=== PATIENT | male | born 1960 | race Caucasian/White ===

== ENCOUNTER 2021-01-16 20:57 | Emergency (ER) | payer BC ==
[~2021-01-16] VITALS: Ht 185.4 cm; Wt 72.7 kg
[~2021-01-16 20:57] MED LIST: ACET325T9 PO; BENZ200C47 PO; ONDA4TAB7 PO; OXYC1TAB15 PO; SILD100T PO; SIMV20TA18 PO
[2021-01-16 22:10] VITALS: BP 143/82
[2021-01-16] MEDS ORDERED: LIDOCAINE/EPI/TETRACAINE TOPICAL GEL 3 ML. TP ONE (22:30)
[2021-01-16] MEDS ORDERED: DIPH,PERTUSS(ACELL),TET VAC/PF 0.5 ML SYRINGE. VAX IM ONE (22:30)
[2021-01-16] MEDS ORDERED: AMOXICILLIN/K CLAV 875/125MG TABLET. PO ONE (22:30)
[2021-01-16] MEDS ORDERED: HYDROcodone/APAP 5/325MG 1 TAB TABLET PO ONE (22:30)
[2021-01-16] MEDS ORDERED: AMOX1TAB61 PO (22:40)
--- NOTE | 2021-01-16 22:41 | PHYS DOC ---
Past Medical History Past Medical History: High Cholesterol, Hypertension, Pneumonia Past Surgical History: Cholecystectomy, Other Additional Past Surgical Histo: hernia Smoking Status: Current Every Day Smoker Alcohol Use: Occasionally Drug Use: None General Adult EDM: Chief Complaint: ANIMAL BITE HPI: HPI: Patient is a 60 year old male with a history of hypertension, high cholesterol, current smoker, who presents to the ED today with dog bites. Patient states he got bit by his friend's pit bull prior to coming to the ED. He has bites to the left medial leg and right upper extremity. Patient states the dog is up-to-date with its shots. Review of Systems: Review of Systems: Constitutional: Denies fever or chills. [] Musculoskeletal: Denies back pain or joint pain. [] Integument: Dog bites to the left medial leg and right upper extremity Neurologic: Denies headache, focal weakness or sensory changes. [] Psychiatric: Denies depression or anxiety. [] Heart Score: C/O Chest Pain: N/A Risk Factors: Risk Factors: DM, Current or recent (<one month) smoker, HTN, HLP, family history of CAD, obesity. Risk Scores: Score 0 - 3: 2.5% MACE over next 6 weeks - Discharge Home Score 4 - 6: 20.3% MACE over next 6 weeks - Admit for Clinical Observation Score 7 - 10: 72.7% MACE over next 6 weeks - Early Invasive Strategies Current Medications: Current Medications Medications (Trade) Dose Ordered Sig/Jeny Start Time Stop Time Status Last Admin Dose Admin Acetaminophen/ Hydrocodone Bitart (Lortab 5/325) 2 tab 1X ONCE 01/16/21 22:30 01/16/21 22:31 Amoxicillin/ Clavulanate Potassium (Augmentin 875/ 125mg) 1 tab 1X ONCE 01/16/21 22:30 01/16/21 22:31 UNV Diphtheria/ Tetanus/Acell Pertussis (ADACEL TDap SYRINGE) 0.5 ml ONCE ONCE 01/16/21 22:30 01/16/21 22:31 Tetracaine/ Epinephrine/ Lidocaine (Let (Nbab-Dvapiiu-Pcnpc) Gel) 12 ml 1X ONCE 01/16/21 22:30 01/16/21 22:31 Allergies: Allergies: Allergies Coded Allergies Type Severity Reaction Last Updated Verified No Known Drug Allergies 06/01/15 No Physical Exam: PE: Constitutional: Well developed, well nourished, no acute distress, non-toxic appearance. [] Skin: Right triceps with roughly 3 puncture wounds each 0.5 cm consistent with dog bites. Bleeding is controlled. Neurovascular exam is intact to the right upper extremity. Range of motion is intact to the right upper extremity. +2 left radial pulse. +2 right radial pulse. Cap refill less than 2 seconds to the right upper extremity. Left medial lower extremity just above the ankle with a deep tissue dog bite past the subcutaneous tissue, bite size approximately 14 x 10 cm. Bleeding is well controlled. Neurovascular exam is intact to the left lower extremity. Range of motion is intact to the left lower extremity. +2 left pedal pulse. Cap refill less than 2 seconds to left fingers. Back: No tenderness, no CVA tenderness. [] Extremities: No tenderness, no cyanosis, no clubbing, ROM intact, no edema. [] Neurologic: Alert and oriented X 3, normal motor function, normal sensory function, no focal deficits noted. [] Psychologic: Affect normal, judgement normal, mood normal. [] Current Patient Data: Vital Signs: Vital Signs Date Time Temp Pulse Resp B/P (MAP) Pulse Ox O2 Delivery O2 Flow Rate FiO2 01/16/21 22:10 98.0 79 143/82 (102) 98 Room Air 98.0 EKG: EKG: [] Radiology/Procedures: Radiology/Procedures: [] Course & Med Decision Making: Course & Med Decision Making Pertinent Labs and Imaging studies reviewed. (See chart for details) This a 60-year-old male patient presented to the ED today with dog bites to the left lower extremity and right upper extremity. The dog bite to the left lower extremity is very deep. I spoke to Dr. Henry orthopedic doctor who requested we admit patient and will do I&D tomorrow. I spoke to patient about admission, he refused. He states he is a heavy smoker and is normally he is going to accept to stay in the hospital. I gave him the risk of leaving including and disability as well as losing the extremities. He completely refused. He refuse smoking cessation talk. He was given Augmentin tetanus and the wound cleaned in the ED. Discharged on Augmentin. Provided orthopedic doctor for follow-up as an outpatient Dr. Lizama evaluated patient. Tessa Disclaimer: Tessa Disclaimer: This electronic medical record was generated, in whole or in part, using a voice recognition dictation system. Departure Departure Impression: Primary Impression: Dog bite of right upper extremity Qualified Codes: S41.151A - Open bite of right upper arm, initial encounter; W54.0XXA - Bitten by dog, initial encounter Additional Impressions: Dog bite of lower extremity Smoking addiction Disposition: HOME / SELF CARE / HOMELESS Condition: STABLE Referrals: UNKNOWN PCP NAME (PCP) ABEL ULRICH DO call his office tomorrow and follow up Patient Instructions: Animal Bite, [id number] Additional Instructions: You have dog bites to the left and right upper extremities. Keep the area clean and dry. Follow-up with the provided orthopedic doctor as soon as you can. Ensure you complete your antibiotics. Come back to the ED at any point wound condition worsens Scripts Amoxicillin/Potassium Clav (AUGMENTIN 875-125 TABLET) 1 Each Tablet 1 TAB PO BID for 10 Days, #20 TAB 0 Refills Prov: CHAD MONDRAGON APRN 01/16/21 CHAD MONDRAGON APRN Jan 16, 2021 22:41
[2021-01-16] MEDS ORDERED: NEOMY/BACITR/POLYMYXIN OINT PACKET. TP ONE (23:00)
== END 2021-01-17 00:34 | disposition home or self-care (01) ==
LOC: ER 20:57
DX: S41.151A Open bite of right upper arm, initial encounter (principal); S81.852A Open bite, left lower leg, initial encounter; E78.00 Pure hypercholesterolemia, unspecified; I10 Essential (primary) hypertension; F17.200 Nicotine dependence, unspecified, uncomplicated; W54.0XXA Bitten by dog, initial encounter; Y93.89 Activity, other specified; Y92.89 Other specified places as the place of occurrence of the external cause; Y99.8 Other external cause status
CPT/HCPCS: 90471; 90715; 99284

== ENCOUNTER 2021-01-21 13:35 | Day surgery (SDC) | payer BC ==
[~2021-01-21] VITALS: Ht 177.8 cm; Wt 72.7 kg
[~2021-01-21 13:35] MED LIST changes: +AMOX1TAB61 PO; +HYDROmorphone 2 MG/ML VIAL IVP PRN; +IV RINGERS,LACTATED 1000ML 1,000 ML IV SCH; +PROCHLORPERAZINE 10 MG/2 ML VIAL. IVP PRN; +fentaNYL PF VIAL 100 MCG/2 ML VIAL IVP PRN
[2021-01-21] MEDS ORDERED: PROPOFOL 10 MG/ML (20ML) VIAL. IV ONE (13:50)
[2021-01-21] MEDS ORDERED: LIDOCAINE 2% PF 5 ML VIAL. ONE (13:50)
[2021-01-21] MEDS ORDERED: fentaNYL PF VIAL 100 MCG/2 ML VIAL ONE ×2 (13:50→15:45)
[2021-01-21] MEDS ORDERED: MIDAZOLAM HCL/PF 2 MG/2 ML VIAL. ONE (13:52)
[2021-01-21] MEDS ORDERED: OXYC1TAB15 PO (14:28)
[2021-01-21] MEDS ORDERED: DEXAMETHASONE SOD PHOS 4 MG/ML VIAL ONE (14:47)
[2021-01-21] MEDS ORDERED: SEVOFLURANE 31 TO 60 MINUTES. IH ONE (14:47)
[2021-01-21] MEDS ORDERED: ONDANSETRON PF 4 MG/2 ML VIAL. ONE (14:47)
[2021-01-21] MEDS ORDERED: SULF1TAB24 PO (15:00)
--- NOTE | 2021-01-21 15:41 | CONS ---
DATE OF CONSULTATION: 01/21/2021 The patient was evaluated in the Emergency Room Department as well as our department here for wound care. Ten days ago, he sustained a dog bite wound at his home. As I understand, after that he did not wish to come to the hospital; however, he did come to the Emergency Department on Thursday of last week at which time he was evaluated, he denied treatment such as admission to the hospital with IV antibiotics and he was adamant about being discharged home. He did show up two days later to the wound care facility where they again try to admit him to the hospital for appropriate treatment and antibiotic treatment with the possibility of surgical intervention. Again, he refused us. However, over the weekend, they did contact myself as well as my partner, Dr. Weinstein about the possibility of an irrigation and debridement. The patient still did not wish to do anything, but did after a long discussion with wound care, decided that he would come to the hospital today. Upon evaluation in the preoperative area, he refused to come in earlier to be irrigated and debrided earlier today. However, upon his arrival today, he wishes only to have an irrigation and debridement as well as some type of dressing change. Dressing in place, which we have discussed with him. He does not want a wound VAC, but he understands for even a chance that viability of this left lower extremity that is a very good possibility at this point. Therefore, he was well aware of the risks and complications as well as benefits and expectations of both the surgery as well as a future treatments and antibiotics, knowing that this is a significantly delicate situation being this far out from a significant dog bite wound down to what appears to be the bone region. His physical examination today reveals to be a significant amount of necrotic tissue, there is a foul odor coming from the area. There was some preoperative pictures taken of the patient as well along the area of the wound. A lot of areas of nonviable tissue. No purulent drainage is noted. Distal neurovascular status distal to that wound is actually intact completely and proximal to the wound as well and there is no significant migration of any erythematous region to that area. Again, no other signs of obvious involvement of deeper bone structures and he will need to undergo an appropriate treatment. Hopefully, he will decide to go ahead and be admitted to the hospital, but he has already told us he will not do that. He was to be discharged directly home today. NBA DR: Britton TID: [id number]
[2021-01-21] MEDS ORDERED: oxyCODONE/APAP 5/325 1 TAB TABLET PO ONE (15:45)
[2021-01-21] MEDS ORDERED: MORPHINE SULFATE 2 MG/ML INJ. ONE (15:46)
[2021-01-21] MEDS: MORPHINE SULFATE 2 MG/ML INJ. IVP PRN ×2 (15:51→16:08)
[2021-01-21 16:06] VITALS: BP 175/92
--- NOTE | 2021-01-21 17:40 | OP ---
DATE OF SURGERY: 01/21/2021 PREOPERATIVE DIAGNOSIS: Open dog bite wound, left lower leg. POSTOPERATIVE DIAGNOSIS: Open dog bite wound, left lower leg. PROCEDURE: Irrigation and debridement, left lower extremity wound. SURGEON: Marcelo De Luna Jr., DO TEMPERATURE REGULATOR PYROMETER: Kennedy. ANESTHESIA: General. COMPLICATIONS: None. ESTIMATED BLOOD LOSS: 20 mL. Standard dictation for engineer first assistant. DESCRIPTION OF PROCEDURE: The patient was taken to the operative suite, given anesthetic. Left lower extremity was then prepped and draped in a sterile fashion. Necrotic and nonviable tissue was removed. This was done in the presence of the wound care department here at [facility]. After we debrided significant amount of necrotic tissue, cultures were then taken at this point. There was exposure of the tibia along the area of the junction of the middle and distal third of the region, but this did not extend distally. After the thorough debridement was undertaken of necrotic tissue, no other necrotic tissue was remaining and there was bleeding in the remainder of the tissue peripheral regions. Therefore, this was copiously irrigated. Following this, the wound care was here to place the wound VAC. After that was applied, the patient was then taken from the operative bed to the postoperative bed, taken to the PACU in stable condition. GEORGI DR: Britton TID: [id number]
--- NOTE | 2021-01-21 18:26 | NUR ---
Wound Care Wound Type/Assessment: Pt is known to the wound clinic from initial visit on Thursday01/18/21. Pt presented 2 days s/p traumatic dog bite to [facility]. This wound had been minimally treated in the ER the day of the incident, but patient left AMA after declining hospital admission as recommended by ER physician. Dr. Ley of the wound clinic also recommended admitting to the hospital, to which the patient vehemently declined, and Dr. De Luna was consulted. Pt agreed to I&D in the OR scheduled for today 01/21/21. Ritchie Castillo RN and this nurse present in the OR for debridement and wound vac placement. Post operative pictures and measurements obtained. Exposed bone, muscle, fascia, and adipose present in wound bed; 3 cm of undermining from 12:00-2:00. Contact layer covering all exposed structures, making up approximately half of the wound base; 2 pieces of black foam placed into wound base. Bridged to L lower leg, superior to open wound. Good seal achieved, settings @ 125mmHg, continuous. Treatment Recommendations/Plan: Maintain wound vac and follow up in wound clinic on Thursday, Wednesdays, and Fridays. Education provided: Education provided by Ritchie Castillo RN in the surgical consultation room to regarding the importance of smoking cessation, elevation, and compliance with recommended treatment plan. Expressed multiple times that hospitalization is still highly recommended to monitor post-op bleeding, manage pain, and administer IV antibiotics. Discharge Recommendations for dressings: Maintain wound vac until follow up in the wound clinic on Thursday. Elevate legs 4x daily for 30 minutes. Wear compression. Reduce smoking as much as possible.
[2021-01-30] MEDS ORDERED: TRAM50TA PO (11:03)
== END 2021-01-21 16:54 | disposition home or self-care (01) ==
LOC: SURG 13:35
PROVIDERS: ATTEND Orthopaedic Surgery
DX: S81.852A Open bite, left lower leg, initial encounter (principal); E78.00 Pure hypercholesterolemia, unspecified; J44.9 Chronic obstructive pulmonary disease, unspecified; M19.90 Unspecified osteoarthritis, unspecified site; F41.9 Anxiety disorder, unspecified; F17.210 Nicotine dependence, cigarettes, uncomplicated; Z79.899 Other long term (current) drug therapy; Z98.890 Other specified postprocedural states; X58.XXXA Exposure to other specified factors, initial encounter; Y93.89 Activity, other specified; Y92.89 Other specified places as the place of occurrence of the external cause; Y99.8 Other external cause status
CPT/HCPCS: 27603; 87071; 87075; A4930; A6402; J0690; J1100; J2270; J2405; J2704; J3010; 87077; J2250

== ENCOUNTER → 2021-01-25 | Outpatient (CLI) | payer BC ==
[2021-01-21 16:06] VITALS: BP 175/92
[~2021-01-25] MED LIST changes: -HYDROmorphone 2 MG/ML VIAL IVP PRN; -IV RINGERS,LACTATED 1000ML 1,000 ML IV SCH; -PROCHLORPERAZINE 10 MG/2 ML VIAL. IVP PRN; +SULF1TAB24 PO; -fentaNYL PF VIAL 100 MCG/2 ML VIAL IVP PRN
--- NOTE | 2021-01-25 17:16 | RAD ---
US LEFT LOWER EXTREMITY ARTERIAL DUPLEX EVAL Indication: Reason: POST SURGICAL DEBRIDEMENT/LEG PAIN / Spl. Instructions: / History: Comparison: None. Procedure: Real-time grayscale, color flow Doppler, and Doppler spectral waveform analysis of the art erial system of the lower extremity is performed. Findings: Left lower extremity: Triphasic or biphasic waveform throughout the left lower extremity. Peroneal ar justino not identified. Mildly elevated velocity within the right common femoral artery measures 156 cm/ s. Mildly elevated velocity within the left mid superficial femoral artery measures 170 cm/s. Mild at heromatous plaque. IMPRESSION: 1. Mildly elevated velocity within the left common femoral artery and mid superficial femoral artery , may indicate 30-49 percent stenosis. 2. Mild atheromatous plaque. 3. Peroneal artery not identified, may relate to technique or occlusion. Electronically signed by: Saw Kulkarni DO (01/25/2021 5:13 PM) [id number]
== END ==
LOC: US 12:26
PROVIDERS: ATTEND Preventive Medicine Undersea and Hyperbaric Medicine
DX: M79.662 Pain in left lower leg (principal); I70.90 Unspecified atherosclerosis; Z98.890 Other specified postprocedural states
CPT/HCPCS: 93926